=== PATIENT | male | born 1955 | race Caucasian/White ===

== ENCOUNTER 2017-09-05 17:42 | Day surgery (SDC) | payer OTHER ==
[~2017-09-05 17:42] MED LIST: Glycopyrrolate 0.2 MG/ML 5 ML SYRINGE ONE; Lidocaine 1% PF 5 ML VIAL ONE; PROPOFOL 200 MG/20 ML VIAL ONE; Succinylcholine Chloride 20 MG/ML 10 ml SYRINGE FS ONE
[2017-09-05] MEDS ORDERED: Fentanyl 100 MCG/2 ML VIAL ONE ×3 (18:17→23:18)
[2017-09-05] MEDS ORDERED: Piperacillin/Tazobactam 3.375 GM in Sodium Chloride 0.9% 100 ML IVPB SCH (18:45)
[2017-09-05 18:57] LABS: #Eosinphils 0.1 thou/uL (0.0-0.7); #Monocytes 0.7 thou/uL (0.11-0.59); #Neutrophils 6.7 thou/uL (1.40-6.50); %Basophils 0.3 % (0.0-1.0); %Eosinophils 1.2 % (0.0-10.0); %Lymphocytes 28.5 % (21.0-51.0); %Monocytes 6.2 % (0.0-10.0); %Neutrophils 63.8 % (42.0-75.0); Hemoglobin 14.8 g/dL (14.0-18.0); Mean Corpuscular HGB CONC 33.6 g/dL (32.0-36.0); Mean Corpuscular Hemoglobin 30.7 pg (27.0-31.0); Mean Corpuscular Volume 91.5 fl (80.0-94.0); Mean Platelet Volume 7.9 fL (7.4-10.4); Platelet Count 212 thou/uL (130-400); RBC Distribution Width 12.2 % (11.5-14.5); Red Blood Cell (RBC) Count 4.83 mill/uL (4.70-6.10); White Blood Cell (WBC) Count 10.5 thou/uL (4.8-10.8)
[2017-09-05 19:10] LABS: ALT (SGPT) 14 U/L (8-55); AST (SGOT) 13 U/L (5-34); Albumin 3.9 g/dL (3.4-4.8); Alkaline Phosphatase 101 U/L (40-150); Anion Gap 10 mmol/L (10-20); BUN (Urea Nitrogen) 17 mg/dL (8.4-25.7); Bilirubin, Total 0.7 mg/dL (0.2-1.2); Calc. Creatinine Clearance 0 mL/min (70-130); Calcium 8.8 mg/dL (7.8-10.44); Carbon Dioxide 24 mmol/L (23-31); Chloride 108 mmol/L (98-107); Estimated GFR-MDRD Greater than 90; Globulin 2.8 g/dL (2.4-3.5); Glucose 100 mg/dL (80-115); Potassium 4.3 mmol/L (3.5-5.1); Protein, Total 6.7 g/dL (5.8-8.1); Sodium 138 mmol/L (136-145)
[2017-09-05] MEDS ORDERED: Bupivacaine HCl 0.5%/Epinephrine 1:200,000/PF 30 ml Vial ONE (20:07)
--- NOTE | 2017-09-05 20:26 | HP ---
HISTORY OF PRESENT ILLNESS: Bertram Bhatti is a 62-year-old male patient from [place]. He is mar simi. He is retired, [email or web address]. 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 He, 48 -hours ago, began experiencing right lower quadrant lower abdominal pain associated with anorexia, na usea, increased pain with movement. He presented to [facility], noted to have an eleva gomez white count and a CT scan revealed changes consistent with appendicitis, transferred to [facility]. White count 10, hemoglobin 14. Comprehensive metabolic profile normal. ALLERGIES: None. SOCIAL HISTORY: Tobacco none. Alcohol rarely. MEDICATIONS: None. PAST SURGICAL HISTORY: Bilateral rotator cuff, lumbar surgery x2, colonoscopy two years ago with lela ypectomy. PAST MEDICAL HISTORY: Noncontributory. MEDICATIONS: 81 mg aspirin a day. REVIEW OF SYSTEMS: Ten point noncontributory. PHYSICAL EXAMINATION: HEENT: Unremarkable. LUNGS: Clear to auscultation. CARDIAC: Regular rate and rhythm without murmur or gallop. ABDOMEN: Soft, tenderness in right upper quadrant with guarding and rebound. Positive Rovsing. EXTREMITIES: Unremarkable. ASSESSMENT AND PLAN: Acute appendicitis. Recommend laparoscopic video appendectomy. Risk of infect ion, bleeding, visceral injury, possibly open procedure discussed. Plans to discharge him home rhea enciso, pending operative findings. He should follow up in my office in 2 to 3 weeks. Risks and benefit s discussed and questions answered.
[2017-09-05] MEDS ORDERED: SUGAMMADEX SODIUM 200 MG/2 ML VIAL ONE (22:52)
[2017-09-05] MEDS ORDERED: HYDROcodone/Acetaminophen 5/325 mg Tablet ONE (23:49)
--- NOTE | 2017-09-06 01:14 | OP ---
DATE OF PROCEDURE: 09/05/2017 PREOPERATIVE DIAGNOSIS: Appendicitis. POSTOPERATIVE DIAGNOSIS: Appendicitis. PROCEDURE: Laparoscopic video appendectomy. SURGEON: Dr. Catarino Ayers ANESTHESIA: General. Local 0.5% Marcaine, 30 mL, mixed with 1% Xylocaine with epinephrine, 20 mL, t otal volume mixture used. FINDINGS: Acute appendicitis. ESTIMATED BLOOD LOSS: Less than 5 mL. PROCEDURE IN DETAIL: Patient taken to the operating room where under general anesthesia, Mckeon ivonne ter placed and venous procedure and removed at the end. Abdomen clipped of hair, prepared with chlor aprep, draped in routine fashion. Local anesthetic infiltrated into skin and subcutaneous tissue abo ut all port sites. Infraumbilical incision made. Pneumoperitoneum to 15 mmHg obtained with the Lana ss needle, replacing it with a 5 port. Video laparoscope inserted. Right lateral subcostal incision made and a [address] Suprapubic incision made and 12 port placed. Appendix acutely inflamed, m esoappendix divided with a LigaSure with good hemostasis. The stump of the appendix divided and the cecal stump with 2 fires of Endo-ONELIA blue load stapler. Stapled cecal stump was hemostatic and secur e as the appendix placed in Endobag and removed. Pericecal area irrigated. Irrigant evacuated. Goo d hemostasis ensured. Suprapubic fascia approximated with 0 Vicryl GraNee needle. Irrigant and pneu moperitoneum evacuated. All instruments removed and all skin incisions approximated with interrupted subdermal 4-0 Monocryl and DermaGlue applied.
== END 2017-09-06 00:15 | disposition home or self-care (01) ==
LOC: ERS 17:42 → SDC/OP 18:46
PROVIDERS: ATTEND Specialist
PROC: 0DTJ4ZZ Resection of Appendix, Percutaneous Endoscopic Approach (ICD-10-PCS; principal; 2017-09-06)
DX: D3A.020 Benign carcinoid tumor of the appendix (principal); Z79.82 Long term (current) use of aspirin; Z86.010 Personal history of colon polyps; Z98.890 Other specified postprocedural states
CPT/HCPCS: 36415; 80053; 85025; 88304; 88341; 88342; 88360; 96374; J0131; J0670; J2001; J2543; J2704; J3010; J7050

== ENCOUNTER 2017-09-24 09:17 | Outpatient (CLI) | payer OTHER ==
--- NOTE | 2017-09-24 14:41 | NM ---
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 TECHNIQUE/FINDINGS: The patient was injected with 30.5 mCi technetium-99m MDP intravenously. Whole body imaging of the [place] skeleton demonstrates bilateral renal and bladder activity. There was some contamination over the left groin and scrotum region. No evidence for abnormal or altered osteogenesis. In the region of the previously noted sclerotic density in the right ilium on a prior outside CT scan, there is no eviden ce for abnormally increased activity. This probably represents a benign bone island. IMPRESSION: No evidence of metastasis. POS: MARY
== END 2017-09-24 09:18 | disposition home or self-care (01) ==
LOC: NM 09:17
PROVIDERS: ATTEND Specialist
DX: D3A.020 Benign carcinoid tumor of the appendix (principal); Z90.49 Acquired absence of other specified parts of digestive tract
CPT/HCPCS: 78306; A9503

== ENCOUNTER 2019-09-02 07:18 | Outpatient (CLI) | payer OTHER ==
--- NOTE | 2019-09-02 10:41 | CT ---
CT ABDOMEN AND PELVIS WITH IV CONTRAST 09/02/2019 CLINICAL INFORMATION: Carcinoid tumor of the appendix. Follow-up evaluation. COMPARISON: 04/30/2018 Technique: Multiple contiguous axial CT images are obtained through the abdomen and pelvis with IV contrast. Cor onal reformatted images are provided. FINDINGS: Lower Chest: Calcified right hilar lymph nodes are partially imaged. Lung bases are otherwise clear. Vessels: Mild vascular calcifications are seen in the abdominal aorta and involving the iliac arterie s. The abdominal aorta is normal in caliber without evidence of an aortic dissection. Abdomen: Gallbladder: Within normal limits for CT imaging. Liver: within normal limits. Spleen: Heterogeneous related to phase of enhancement. Pancreas: within normal limits. Adrenals: within normal limits. Kidneys: Stable exophytic hypodense lesions left kidney likely related to cysts. There is scarring of the right kidney. Bowel: Small duodenal diverticulum is again seen. Colonic diverticulosis is again present. Loops of s mall bowel are normal in caliber. Appendix: Not visualized and probably surgically absent. Peritoneum: No ascites or free air; no fluid collection. Mesentery and Retroperitoneum: No enlarged mesenteric or retroperitoneal lymph nodes. Abdominal Wall: within normal limits. Pelvis: Reproductive Organs: No pelvic masses. Pelvis within normal limits. Bladder: within normal limits. Bones: Degenerative changes are seen in the spine. There is a stable sclerotic density again seen in the right iliac bone unchanged when compared to prior exam as well as study on 09/05/2017. IMPRESSION: 1. No acute findings are seen in the abdomen or pelvis. 2. Postsurgical changes related to prior appendectomy. 3. No CT evidence of metastatic disease. 4. Stable sclerotic density right iliac bone which is unchanged in size or appearance compared to yoana dy in 2018. 5. Cortical scarring involving the right kidney. 6. Stable left renal cysts.
[2019-09-02] MEDS ORDERED: Iopamidol 370 76% 100 ML VIAL ONE (14:40)
[2019-09-02] MEDS ORDERED: Iopamidol 370 76% 50 ML VIAL FS ONE (14:40)
== END 2019-09-02 07:19 | disposition home or self-care (01) ==
LOC: CT 07:18
PROVIDERS: ATTEND Specialist
DX: D3A.020 Benign carcinoid tumor of the appendix (principal); N28.1 Cyst of kidney, acquired; N28.89 Other specified disorders of kidney and ureter; M85.88 Other specified disorders of bone density and structure, other site; Z90.49 Acquired absence of other specified parts of digestive tract
CPT/HCPCS: 36415; 74177; 80053; 82565; 85025; 86316; Q9967